=== PATIENT | male | born 1990 | race Caucasian/White ===

== ENCOUNTER 2022-02-20 22:13 | Emergency (ER) | payer OTHER ==
[~2022-02-20] VITALS: Ht 177.8 cm; Wt 84.1 kg
[2022-02-20 22:30] VITALS: BP 138/90; PULSE 71; TEMP 97.6
== END 2022-02-20 22:54 | disposition home or self-care (01) ==
LOC: COL.ER 22:13
DX: S61.012A Laceration without foreign body of left thumb without damage to nail, initial encounter (principal); W26.0XXA Contact with knife, initial encounter